=== PATIENT | female | born 1995 | race African-American/Black ===

== ENCOUNTER 2024-01-22 05:52 | Emergency (ER) | payer OTHER ==
[~2024-01-22] VITALS: Ht 162.6 cm; Wt 87.1 kg
[2024-01-22 06:13] VITALS: BP 123/70; RESP 20; O2SAT 98
[2024-01-22 06:24] VITALS: PULSE 90
[2024-01-22] MEDS ORDERED: LACTATED RINGER'S 1,000 ML IV ONE (07:30)
[2024-01-22] MEDS: diphenhdrAMINE HCL 50 MG/1 ML VL IV ONE (07:39)
[2024-01-22] MEDS: KETOROLAC TROMETH 30 MG/ML 1ML VIAL IV ONE (07:39)
[2024-01-22] MEDS: ONDANSETRON HCL 4 MG/2 ML VIAL IV ONE (07:40)
== END 2024-01-22 07:37 | disposition left against medical advice (07) ==
LOC: ER 05:52
DX: O26.891 Other specified pregnancy related conditions, first trimester (principal); R51.9 Headache, unspecified; R11.2 Nausea with vomiting, unspecified; J45.909 Unspecified asthma, uncomplicated
CPT/HCPCS: 82962; 93005

== ENCOUNTER 2024-04-01 14:45 | Emergency (ER) | payer OTHER | END 2024-04-01 14:51 | disposition left against medical advice (07) | LOC: ER 14:45 | DX: R51.9 Headache, unspecified (principal); Z53.21 Procedure and treatment not carried out due to patient leaving prior to being seen by health care provider ==

== ENCOUNTER 2025-06-15 08:31 | Emergency (ER) | payer OTHER, MEDICAID ==
[~2025-06-15] VITALS: Ht 162.6 cm; Wt 84.7 kg
[2025-06-15 08:34] VITALS: BP 139/81; PULSE 76; RESP 18; TEMP 98.2; O2SAT 98
[2025-06-15] MEDS ORDERED: KETOROLAC TROMETH 30 MG/ML 1ML VIAL IV ONE (09:45)
--- NOTE | 2025-06-15 09:52 | ED.PDOC ---
History of Present Illness HPI Comments A 30 YEAR OLD FEMALE PRESENTS TO THE ED WITH COMPLAINT OF TOOTH PAIN . PATIENT STATES SHE HAS BEEN HAVING LEFT UPPER QUADRANT TOOTH PAIN FOR THE PAST 5-6 DAYS. PATIENT STATES SHE WAS AT [facility] YESTERDAY AND STATES SHE WAS TOLD SHE HAS ABSCESS IN HER ORAL CAVITY AND WAS TOLD TO COME TO THE ED FOR FURTHER E VALUATION. PATIENT IN THE ED HAS NOTED SWELLING TO THE LEFT SIDE OF HER FACE BUT OTHERWISE NO NOTED PUS OR DRAINAGE IS SEEN. PATIENT IN THE ED OTHERWISE HAS STABLE VITALS. PATIENT DENIES FEVER, CHILLS, SHORTNESS OF BREATH, CHEST PAIN, ABDOMINAL PAIN, NAUSEA, VOMITING, HEADACHE, OR OTHER COMPLAINTS. NO OTHER SYMPTOMS OR MODIFYING FACTORS AT THIS TIME. PATIENT IS ALERT, ORIENTED X 4, AND HAS STEADY GAIT. Chief Complaint: Tooth Pain Time Seen by MD: 09:48 Primary Care Provider: GWEN Archer Notes: Nurses Notes, Medications, Allergies Allergies: Coded Allergies: NO KNOWN ALLERGIES (Unverified , 05/19/11) Information Source: Patient Mode of Arrival: Ambulatory Severity: Moderate Timing: Days Duration: Since onset Medication Refill: For: Other (LEFT UPPER TOOTH PAIN ) Past Medical History PAST MEDICAL HISTORY: Asthma Surgical History: Denies all surgeries EDUCATION PROGRAM SPECIALIST History: Denies all EDUCATION PROGRAM SPECIALIST Hx Family History Family History: Reviewed,noncontributory to illness Social History Smoker: Non-Smoker Alcohol: Denies ETOH Use Drugs: Denies Drug Use Lives In: Home Constitutional: denies: chills, diaphoresis, fatigue, fever, malaise, sweats, weakness, others EENTM: reports: mouth pain, others (TOOTH PAIN); denies: blurred vision, double vision, ear bleeding, ear discharge, ear drainage, ear pain, ear ringing, eye pain, eye redness, hearing loss, mouth swelling, nasal discharge, nose bleeding, nose congestion, nose pain, photophobia, tearing, throat pain, throat swelling, voice changes Respiratory: denies: cough, hemoptysis, orthopnea, SOB at rest, shortness of breath, SOB with excertion, stridor, wheezing, others Cardiovascular: denies: chest pain, dizzy spells, diaphoresis, Dyspnea on exertion, edema, irregular heart beat, left arm pain, lightheadedness, palpitations, PND, syncope, others Gastrointestinal: denies: abdomen distended, abdominal pain, blood streaked bowels, constipated, diarrhea, dysphagia, difficulty swallowing, hematemesis, melena, nausea, poor appetite, poor fluid intake, rectal bleeding, rectal pain, vomiting, others Genitourinary: denies: abnormal vagina bleeding, burning, dyspareunia, dysuria, flank pain, frequency, hematuria, incontinence, pain, , vagina discharge, urgency, others Neurological: denies: dizziness, fainting, headache, left sided numbness, left sided weakness, numbness, paresthesia, pre-existing deficit, right sided numbness, right sided weakness, seizure, speech problems, tingling, tremors, weakness, others Musculoskeletal: denies: back pain, gout, joint pain, joint swelling, muscle pain, muscle stiffness, neck pain, others Integumetry: denies: bruises, change in color, change in hair/nails, dryness, laceration, lesions, lumps, rash, wounds, others Allergic/Immunocompromised: denies: Difficulty Healing, Frequent Infections, Hives, Itching, others Hematologic/Lymphatic: denies: anemia, blood clots, easy bleeding, easy bruising, swollen glands, others Endocrine: denies: excessive hunger, excessive sweating, excessive thirst, excessive urination, flushing, intolerance to cold, intolerance to heat, unexplained weight gain, unexplained weight loss, others Psychiatric: denies: anxiety, bipolar disorder, depression, hopeless, panic disorder, schizophrenia, sleepless, suicidal, others All Other Systems: Reviewed and Negative Physical Exam General Appearance: Mild Distress, Obese HEENT: Normal ENT Inspection, PERRL/EOMI, Pharynx Normal, TMs Normal, Other (ERYTHEMA AND SWELLING ON LEFT UPPER GUM AROUND TOOTH, DENTAL INFECTION, MILD LEFT CHEEK SWELLING. ) Neck: Full Range of Motion, Non-Tender, Normal, Normal Inspection Respiratory: Chest Non-Tender, Lungs Clear, No Accessory Muscle Use, No Respiratory Distress, Normal Breath Sounds Cardiovascular: No Edema, No JVD, No Murmur, No Gallop, Normal Peripheral Pulses, Regular Rate/Rhythm Breast Exam: Deferred Gastrointestinal: No Organomegaly, Non Tender, No Pulsatile Mass, Normal Bowel Sounds, Soft Genitalia: Deferred Pelvic: Deferred Rectal: Deferred Extremities: No calf tenderness, Normal capillary refill, Normal inspection, Normal range of motion, Non-tender, No pedal edema Musculoskeletal : Apperance: Normal Neurologic: Alert, tattoo technician II-XII nml as Tested, No Motor Deficits, Normal Affect, Normal Mood, No Sensory Deficits Cerebellar Function: Normal Reflexes: Normal Skin: Dry, Normal Color, Warm Peripheral Pulses: 2+ carotid (R), 2+ carotid (L) Lymphatic: No Adenopathy Was a procedure done? Was a procedure done?: No Differential Dx Considerations may include: DENTAL CARIES, ABSCESS IN ORAL CAVITY X-Ray, Labs, Meds, VS Vital Signs Date Time Temp Pulse Resp B/P (MAP) Pulse Ox O2 Delivery O2 Flow Rate FiO2 06/15/25 08:34 98.2 76 18 139/81 98 98.2 X-Ray, Labs, Meds, VS Comment COURSE: EXTERNAL MEDICAL RECORDS REVIEWED: [NONE] INDEPENDENT HISTORIANS: [NONE] SOCIAL DETERMINANTS OF HEALTH: [NO REVIEWED AND INTERPRETED RESULTS: NONE IMAGING ORDERED: NONE TREATMENTS ORDERED: ROCEPHIN 2GM IVPB AND TORADOL 30MG IVP PROCEDURES PERFORMED: NONE CRITICAL CARE TIME: NONE I HAVE DISCUSSED THE PATIENT WITH THE ATTENDING PHYSICIAN DR. WARD AND HE AGREES WITH THE PATIENT'S PLAN OF CARE AND DISPOSITION. 11:00 CALLED PT 3 TIMES FOR IV TREATMENT, NO ANSWER. ELOP[ED. Time of 1ST Reevaluation: 10:10 Reevaluation 1ST: Unchanged Patient Education/Counseling: Diagnosis, Treatment Family Education/Counseling: Diagnosis, Treatment SEPSIS Sepsis Screen Date sepsis recognized/suspect: Jun 15, 2025 Time Sepsis recognized/suspect: 0837 Recent Procedure: No On Antibiotic Therapy: No Respiratory Rate >20: No Heart Rate >90: No Temp<36 C (96.8 F) or >38.3 C: No SBP <90 or MAP <65 mmHG: No New Acute Mental Status Change: No Is the patient on CPAP, BIPAP,: No Physician Orders Heplock Iv (06/15/25 ) Vital Signs Date Time Temp Pulse Resp B/P (MAP) Pulse Ox O2 Delivery O2 Flow Rate FiO2 06/15/25 08:34 98.2 76 18 139/81 98 98.2 Departure 1 Departure Time of Disposition: 11:05 Impression: Primary Impression: Dental caries Additional Impressions: Abscess Eloped from emergency department Disposition: 07 LEFT AWOL/ELOPED Condition: Stable Additional Instructions: Critical Care Note Critical Care Time?: No Stability Stability form required: No Heart Score Heart Score: Heart Score Response (Comments) Value History N/A 0 EKG N/A 0 Age N/A 0 Risk Factors N/A 0 Troponin N/A 0 Total 0 I personally scribed for ADAM ATKINSON ([email or web address]) on 06/15/25 at 09:52. Electronically submitted by Bety Easley ([employer]). I personally scribed for ADAM ATKINSON ([email or web address]) on 06/15/25 at 09:53. Electronically submitted by Bety Easley ([employer]). I personally scribed for ADAM TAKINSON ([email or web address]) on 06/15/25 at 10:59. Electronically submitted by Bety Easley ([employer]). ADAM ATKINSON Jun 15, 2025 09:52
== END 2025-06-15 10:15 | disposition left against medical advice (07) ==
LOC: ER 08:31
DX: K02.9 Dental caries, unspecified (principal); K12.2 Cellulitis and abscess of mouth; J45.909 Unspecified asthma, uncomplicated